=== PATIENT | male | born 1975 | race Asian ===

== ENCOUNTER 2018-04-16 18:12 | Emergency (ER) | payer OTHER ==
[~2018-04-16] VITALS: Ht 177.8 cm; Wt 102.1 kg
[2018-04-16] MEDS ORDERED: SODIUM CHLORIDE 0.9% 1000ML 1,000 ML IV SCH ×2 (18:30→19:15)
[2018-04-16] MEDS ORDERED: ONDANSETRON HCL INJ 2 MG/ML VIAL IV ONE (19:00)
[2018-04-16] MEDS ORDERED: PROMETHAZINE HCL (IM) 25 MG/ML VIAL IM ONE (20:30)
[2018-04-16 20:32] VITALS: BP 153/84
== END 2018-04-16 20:58 | disposition home or self-care (01) ==
LOC: FSED 18:12
DX: R11.2 Nausea with vomiting, unspecified (principal); E86.0 Dehydration; E11.9 Type 2 diabetes mellitus without complications
CPT/HCPCS: 80053; 81003; 85025; 99283; J2405; J2550; J7030

== ENCOUNTER 2018-08-25 07:14 | Emergency (ER) | payer OTHER ==
[~2018-08-25] VITALS: Ht 177.8 cm; Wt 102.1 kg
[2018-08-25] MEDS ORDERED: ONDANSETRON HCL INJ 2MG/ML 2ML 2 MG/ML VIAL IV NR (07:20)
[2018-08-25] MEDS ORDERED: SODIUM CHLORIDE 0.9% 1000ML 1,000 ML IV SCH (07:30)
[2018-08-25] MEDS ORDERED: SODIUM CHLORIDE 0.9% 50ML 50 ML ONE (08:42)
[2018-08-25] MEDS ORDERED: IOPAMIDOL 370 MG/ML 200 ML INFUS..BTL INJ ONE (08:42)
--- NOTE | 2018-08-25 09:08 | Diagnostic Imaging Report ---
EXAM: CT ABDOMEN AND PELVIS with IV CONTRAST DATE: 08/25/2018 Time stamp on Exam: 8:13 AM INDICATION: Abdominal pain with nausea and vomiting COMPARISON: None TECHNIQUE: The abdomen and pelvis were scanned using a multidetector helical scanner. Coronal and sagittal reformations were obtained. Routine protocol performed. IV Contrast: 100 cc of Isovue-370 Oral Contrast: None Radiation Dose: Total DLP 907.94 mGy*cm Estimated effective dose: DLP x 0.015 x size factor Technique modification was utilized to maintain the lowest dose possible to the patient. FINDINGS: LOWER THORAX: No consolidations LIVER: No masses with diffuse fatty infiltration. BILIARY: The gallbladder is unremarkable. No ductal dilatation. SPLEEN: No masses PANCREAS: No masses ADRENALS: No nodules KIDNEYS: Symmetric perfusion. No enhancing masses. No hydronephrosis. GI TRACT: No distention, wall thickening or evidence of obstruction. The appendix is normal. VESSELS: Unremarkable PERITONEUM/RETROPERITONEUM: No free air or fluid LYMPH NODES: No lymphadenopathy REPRODUCTIVE ORGANS: Unremarkable BLADDER: Unremarkable SOFT TISSUES: Unremarkable BONES: No suspicious bone lesions. IMPRESSION: 1. No acute abnormality within the abdomen or pelvis. 2. Diffuse hepatic steatosis without evidence of a mass. Signed by: Dr. Noah South DO on 08/25/2018 9:05 AM
[2018-08-25] MEDS ORDERED: ZOFRAN4 MG PO (09:22)
[2018-08-25] MEDS ORDERED: PROMETHAZINE 25MG/ NS 50ML (IV) IV ONE (09:45)
--- NOTE | 2018-08-25 09:45 | NUR ---
IVF'S RUNNING. STATES, "I JUST DONT FEEL GOOD." ASKED IF HE THOUGHT HE NEEDS TO BE ADMITTED?? PT STATES HE DOES NOT THINK HE WILL NEED ADMISSIN. NOTIFIED.
--- NOTE | 2018-08-25 11:21 | NUR ---
FAMILY PICKED UP PT TO TAKE HOME. AMBULATORY AT DISCHARGE.
[2018-08-25 11:54] VITALS: BP 136/85
== END 2018-08-25 09:30 | disposition home or self-care (01) ==
LOC: FSED 07:14
DX: R11.2 Nausea with vomiting, unspecified (principal); E11.65 Type 2 diabetes mellitus with hyperglycemia
CPT/HCPCS: 74177; 80053; 81003; 85025; 99284; J2550; J7030; Q9967

== ENCOUNTER 2020-02-08 20:04 | Emergency (ER) | payer OTHER ==
[~2020-02-08] VITALS: Ht 180.3 cm; Wt 99.3 kg
[~2020-02-08 20:04] MED LIST: ZOFRAN4 MG PO
[2020-02-08] MEDS ORDERED: FAMOTIDINE 20 MG/2 ML VIAL IV STA (20:55)
[2020-02-08] MEDS ORDERED: EPINEPHRINE HCL 1:1000 1ML 1 MG/ML AMP SC STA (20:55)
[2020-02-08] MEDS ORDERED: METHYLPREDNISOLONE SOD SUCC 125 MG/2ML VIAL IV ONE (21:00)
[2020-02-08] MEDS ORDERED: SODIUM CHLORIDE FLUSH 10 ML SYR INJ PRN (21:00)
[2020-02-08] MEDS ORDERED: DIPHENHYDRAMINE HCL INJ 50 MG/ML VIAL ONE (21:06)
[2020-02-08] MEDS ORDERED: EPINEPHRINE HCL 1:1000 1ML 1 MG/ML AMP ONE (21:06)
[2020-02-08] MEDS ORDERED: METHYLPREDNISOLONE SOD SUCC 125 MG/2ML VIAL ONE (21:06)
[2020-02-08] MEDS ORDERED: FAMOTIDINE 20 MG/2 ML VIAL IV ONE (21:07)
[2020-02-08] MEDS ORDERED: SODIUM CHLORIDE 0.9% 500ML 500 ML ONE (21:07)
[2020-02-08] MEDS ORDERED: INSULIN REGULAR, HUMAN 100 UNIT/1 ML 3ML VIAL ONE (21:33)
[2020-02-08] MEDS ORDERED: PREDNISONE20 MG PO (21:58)
[2020-02-08] MEDS ORDERED: BENADRYL25 M1 PO (21:58)
[2020-02-08] MEDS ORDERED: METFORMIN HCL1000 MG PO (21:58)
[2020-02-08] MEDS ORDERED: PEPCID20 MG PO (21:58)
--- NOTE | 2020-02-08 21:58 | Emergency Department Note ---
History of Present Illnes History of Present Illness Chief Complaint: itchy rash whole body s/p ant bite History of Present Illness This is a 44 year old male. was doing well prior to this Historian: Patient Arrival Mode: Car History limited by: condition of the patient (normal) Manager Respiratory Required: No Location: see above Quality: see above Severity: moderate Onset quality: sudden Duration (how long): hour(s) (1) Timing of current episode: constant Progression: worsening Chronicity: new Context: Reports trauma/injury (ant bite); Denies recent illness, Denies recent surgery, Denies recent immobilization, Denies recent travel, Denies new medications, Denies hx of DVT/PE, Denies non- compliance w/ medications Relieving factors: none Exacerbating factors: none Associated symptoms: Reports denies other symptoms Treatments prior to arrival: none Past Medical/Family History Physician Review I have reviewed the patient's past medical and family history. Any updates have been documented here. Past Medical History Past Medical History: Diabetes Past Surgical History: None Social History Smoking Cessation: Never Smoker Alcohol Use: Social Any Illegal Drug Use: No TB Exposure/Symptoms: No Physically hurt or threatened: No Family History Family history of heart diseas: No Other Last Tetanus: UTD Any Pre-Existing Lines (PICC,: No Is patient up to date on immun: No Review of Systems Review of Systems Constitutional: Reports no symptoms EENTM: Reports no symptoms Cardiovascular: Reports no symptoms Respiratory: Reports no symptoms Gastrointestinal: Reports no symptoms Genitourinary: Reports no symptoms Musculoskeletal: Reports no symptoms Integumentary: Reports as per HPI Neurological: Reports no symptoms Psychological: Reports no symptoms Endocrine: Reports no symptoms Hematological/Lymphatic: Reports no symptoms Review of other systems: All other systems negative Physical Exam Related Data Allergies: Coded Allergies: No Known Allergies (Unverified , 04/16/18) Vital signs reviewed: Yes Physical Exam CONSTITUTIONAL Constitutional: Present well-developed, Present well-nourished HENT HENT: Present normocephalic, Present atraumatic, Present oropharynx clear/moist, Present nose normal HENT L/R: Present left ext ear normal, Present right ext ear normal EYES Eyes: Reports PERRL, Reports conjunctivae normal NECK Neck: Present ROM normal PULMONARY Pulmonary: Present effort normal, Present breath sounds normal CARDIOVASCULAR Cardiovascular: Present regular rhythm, Present heart sounds normal, Present capillary refill normal, Present normal rate GASTROINTESTINAL Abdominal: Present soft, Present nontender, Present bowel sounds normal GENITOURINARY Genitourinary: Present exam deferred SKIN Skin: Present warm, Present dry, Present other (hives) MUSCULOSKELETAL Musculoskeletal: Present ROM normal NEUROLOGICAL Neurological: Present alert, Present oriented x 3, Present no gross motor or sensory deficits PSYCHOLOGICAL Psychological: Present mood/affect normal, Present judgement normal Results Laboratory Laboratory Laboratory Tests Test 02/08/20 21:07 Bedside Glucose 320 mg/dL (70-120) Lab results reviewed: Yes Assessment & Plan Medical Decision Making MDM see below Reassessment Reassessment time: 21:00 Reassessment rash almost gone Assessment & Plan Final Impression: (1) Allergic reaction (2) Hyperglycemia Depart Disposition: HOME, SELF-[facility] Meds Active Scripts Prednisone (PREDNISONE) 20 Mg Tab, 60 MG PO DAILY, #15 TAB TAKE ALL 3 20 MG TABS ALL AT ONCE// ONLY TAKE IF BLOOD GLUCOSE IS LESS THAN 150 Prov:ADALID CARRASCO 02/08/20 Famotidine (PEPCID) 20 Mg Tablet, 20 MG PO Q12HR, #20 TAB Prov:ADALID CARRASCO 02/08/20 Diphenhydramine Hcl (BENADRYL) 25 Mg Capsule, 50 MG PO Q6H, #40 TAB PRN ALLERGIC REACTION Prov:ADALID CARRASCO 02/08/20 Metformin Hcl (METFORMIN HCL) 1,000 Mg Tablet, 1000 MG PO Q12H, #20 PRN BLOOD GLUCOSE GREATER THAN 150 Prov:ADALID CARRASCO 02/08/20 Medications in the ED Sodium Chloride 10 ml PRN PRN INJ IV SITE FLUSH; Start 02/08/20 at 21:00; Stop 03/09/20 at 20:59 Famotidine 40 mg NOW STAT IV ; Start 02/08/20 at 20:55; Stop 02/08/20 at 20:58; Status DC Methylprednisolone Sodium Succinate 125 mg ONCE ONCE IV ; Start 02/08/20 at 21:00; Stop 02/08/20 at 21:01; Status DC Epinephrine HCl 0.5 mg ONCE STAT SC ; Start 02/08/20 at 20:55; Stop 02/08/20 at 20:57; Status DC Epinephrine HCl 1 mg STK-MED ONCE .ROUTE ; Start 02/08/20 at 21:06; Stop 1 at 20:59; Status DC Diphenhydramine HCl 50 mg STK-MED ONCE .ROUTE ; Start 02/08/20 at 21:06; Stop 02/08/20 at 21:00; Status DC Methylprednisolone Sodium Succinate 125 mg STK-MED ONCE .ROUTE ; Start 02/08/20 at 21:06; Stop 02/08/20 at 21:00; Status DC Sodium Chloride 500 ml @ ud STK-MED ONCE .ROUTE ; Start 02/08/20 at 21:07; Stop 02/08/20 at 21:00; Status DC Famotidine 40 mg STK-MED ONCE IV ; Start 02/08/20 at 21:07; Stop 02/08/20 at 21:00; Status DC Insulin Human Regular 100 unit STK-MED ONCE .ROUTE ; Start 02/08/20 at 21:33; Stop 02/08/20 at 21:27; Status DC ADALID CARRASCO Feb 08, 2020 21:58
--- OUTSIDE RECORDS SUMMARY | 2020-02-14 18:16 | XMS REPORT | Continuity of Care Document ---
Author Author [facility] t Organization [facility] Address 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 Allergies, Adverse Reactions, Alerts This patient has no known allergies or adverse reactions. Medications This patient has no known medications. Procedures This patient has no known procedures. Encounters Start Date/Time End Date/Time Encounter Type Admission Type Attendi RUST Care Department Encounter ID Source 2018-08-25 07:14:00 2018-08-25 09:30:00 Departed Emergency Room 1 MARIANO BRENNAN [facility] [id number] [facility] 2018-04-16 18:12:00 2018-04-16 20:58:00 Departed Emergency Room [facility] [id number] [facility] Results Test Description Test Time Test Comments Results Result Comments Source CT ABD/PEL WITH CONTRAST-HOPD 2018-08-25 08:57:00 [facility] [address] [place], [place] [address] Patient Name: RAMY MILLER MR #: [id number] : 1975 Age/Sex: 43/M Req #: [id number] Adm Physician: Ordered by: MARIANO BRENNAN DO Report #: [id number] Location: [facility] Room/Bed: Procedure: [id number] HOPD/CT ABD/PEL WITH CONTRAST-HOPD Exam Date: 08/25/18 Exam Time: 833 REPORT STATUS: Signed EXAM: CT ABDOMEN AND PELVIS with IV CONTRAST DATE: 08/25/2018 Time stamp on Exam: 8:13 AM INDICATION: Abdominal pain with nausea and vomiting COMPARISON: None TECHNIQUE: The abdomen and pelvis were scanned using a multidetector helical scanner. Coronal and sagittal reformations were obtained. Routine protocol performed. IV Contrast: 100 cc of Isovue-370 Oral Contrast: None Radiation Dose: Total DLP 907.94 mGy*cm Estimated effective dose: DLP x 0.015 x size factor Technique modification was utilized to maintain the lowest dose possible to the patient. FINDINGS: LOWER THORAX: No consolidations LIVER: No masses with diffuse fatty infiltration. BILIARY: The gallbladder is unremarkable. No ductal dilatation. SPLEEN: No masses PANCREAS: No masses ADRENALS: No nodules KIDNEYS: Symmetric perfusion. No enhancing masses. No hydronephrosis. GI TRACT: No distention, wall thickening or evidence of obstruction. The appendix is normal. VESSELS: Unremarkable PERITONEUM/RETROPERITONEUM: No free air or fluid LYMPH NODES: No lymphadenopathy REPRODUCTIVE ORGANS: Unremarkable BLADDER: Unremarkable SOFT TISSUES: Unremarkable BONES: No suspicious bone lesions. IMPRESSION: 1. No acute abnormality within the abdomen or pelvis. 2. Diffuse hepatic steatosis without evidence of a mass. Signed by: Dr. Darby South DO on 08/25/2018 9:05 AM Dictated By: DARBY SOUTH DO 4 Transcribed By: ROSEANNE on 08/25/18904 COPY TO: MARIANO BRENNAN DO
== END 2020-02-08 22:31 | disposition home or self-care (01) ==
LOC: FSED 20:55
DX: T78.40XA Allergy, unspecified, initial encounter (principal); T63.421A Toxic effect of venom of ants, accidental (unintentional), initial encounter; E11.65 Type 2 diabetes mellitus with hyperglycemia; I10 Essential (primary) hypertension
CPT/HCPCS: 36415; 82948; 99283; J0171; J1200; J1817; J2930; J7040